=== PATIENT | female | born 1995 | race Caucasian/White ===

== ENCOUNTER 2020-04-11 19:39 | Emergency (ER) | payer OTHER, SELFPAY ==
--- NOTE | 2020-04-11 19:42 | ED.SKABFB ---
HPI - Skin/Abscess/Foreign Bdy General Chief complaint: Extremity Injury, Upper Stated complaint: right hand finger infection Time Seen by Provider: 04/11/20 19:42 Source: patient and RN notes reviewed History of Present Illness HPI narrative: Patient is a 25-year-old female who presents the urgent care with complaints of a infection to the right middle finger. Patient states that she noticed approximately 1 week ago and has now gotten more painful. Denies of any other acute complaints. Denies of fever, chills, nausea, vomiting. No acute distress noted. Patient aware of the plan of care. Some parts of this dictation were generated by voice recognition software and may contain typographical and/or grammatical inaccuracies. Related Data Allergies Allergy/AdvReac Type Severity Reaction Status Date / Time No Known Allergies Allergy Verified 04/11/20 19:51 Review of Systems Review of Systems: Narrative: CONSTITUTIONAL: Denies fever, chills, or sweats. EYES: Denies visual changes, redness, or discharge. ENT: Denies rhinorrhea, congestion, sore throat, or otalgia. CARDIOVASCULAR: Denies chest pain, palpitations, or edema. RESPIRATORY: Denies cough or dyspnea. GASTROINTESTINAL: Denies abdominal pain, nausea, vomiting, or diarrhea. GENITOURINARY: Denies dysuria or hematuria. SKIN: Denies rash or itching. MUSCULOSKELETAL: Reports of pain and swelling surrounding the nailbed of the right middle finger. Denies back pain, joint pain, or myalgia. NEUROLOGIC: Denies headache, numbness, or weakness. All other systems reviewed are negative, except as documented in HPI. PMFSH Comments At the time of my signature, I reviewed and agree with the nursing past medical, surgical, social, and family history. There is no relevant family history pertinent to the patient complaint. Exam Narrative: Exam Narrative: GENERAL: This is a well-nourished, well-developed patient, in no apparent distress. HEAD: normocephalic, atraumatic. EYES: PERRL. Sclera clear/white. Vision is grossly intact. EARS: External ears normal NOSE: External nose normal with no obvious nasal discharge, nares without redness, no rhinorrhea. THROAT: Mucous membranes moist NECK: Neck supple SKIN: Erythemic, tender paronychia to the right middle finger to the top of the nailbed and the radial aspect. Warm, intact with no suspicious lesions or rash, good texture and turgor. NEURO: awake, alert, and oriented to person, place and time. There were no obvious focal neurologic abnormalities. EXTREMITIES: No clubbing, cyanosis, or edema. Capillary refill less than 2 seconds to right upper extremity Course Vital Signs Vital signs: Vital Signs Temperature 98.7 F 04/11/20 19:45 Pulse Rate 72 04/11/20 19:45 Respiratory Rate 20 04/11/20 19:45 Blood Pressure 133/82 04/11/20 19:45 Pulse Oximetry 98 04/11/20 19:45 Temperature 98.7 F 04/11/20 19:45 Pulse Rate 72 04/11/20 19:45 Respiratory Rate 04/11/20 19:45 Blood Pressure 133/82 04/11/20 19:45 Pulse Oximetry 98 04/11/20 19:45 Reviewed Procedures Other Procedure Procedure 1: Other Procedure: Drained paronychia to right middle finger with 18-gauge needle. Cleansed with Technicare and normal saline as well as Betadine prior to procedure. Patient tolerated well. Procedure successful. Thick green to yellow drainage. MDM - Skin/Abscess/Foreign Bdy MDM Narrative Medical decision making narrative: Advised the patient to use plain Dial soap and water soaks twice a day. Apply prescription cream to the affected area twice a day. Keep it covered with a bandage if at risk of being soiled. Make sure to complete oral antibiotic regimen as prescribed. Make sure to eat and drink with the medication to avoid nausea and upset stomach. Increase water intake while on the medicine. Be aware of signs and symptoms of worsening infection such as increased swelling, redness, streaking up the hand or arm. If such
[2020-04-11 19:45] VITALS: BP 133/82; PULSE 72; RESP 20; TEMP 37.1; O2SAT 98
== END 2020-04-11 19:59 | disposition home or self-care (01) ==
PROVIDERS: Emergency Provider Nurse Practitioner Family; PCP Nurse Practitioner Family
DX: L03.011 Cellulitis of right finger (principal)
CPT/HCPCS: 99213; G0463

== ENCOUNTER 2020-08-18 18:45 | Emergency (ER) | payer OTHER, SELFPAY ==
[2020-08-18 19:00] VITALS: BP 129/88; PULSE 110; RESP 16; TEMP 36.6; O2SAT 100
--- NOTE | 2020-08-18 19:57 | ED.EYEPROB ---
HPI - Eye Problem General Chief complaint: Eye Problems Stated complaint: left eye and tooth pain Time Seen by Provider: 08/18/20 19:57 Source: patient and RN notes reviewed Mode of arrival: ambulatory Limitations: no limitations History of Present Illness HPI Narrative: 25-year-old female presents with concern for left eye pain. Reports on Saturday she was playing with her daughter when her daughter scratched her eye. She reports that since then she has been unable to close her eye due to pain. She reports redness, upper eyelid swelling. She reports blurry vision from watery drainage. She also, in a separate complaint, reports right upper dental pain. Reports she has a dentist appointment next week. She denies any new dental trauma, however reports she has many cavities, broken teeth. MD chief complaint: eye pain Related Data Allergies Allergy/AdvReac Type Severity Reaction Status Date / Time No Known Allergies Allergy Verified 04/11/20 19:51 Review of Systems Review of Systems: Narrative: CONSTITUTIONAL: Denies malaise, chills, sweats, or fever. EYES: Reports left blurry vision, left eye pain, redness, watery discharge. ENT: Denies rhinorrhea, congestion, sinus pain, otalgia or sore throat. Reports right upper dental pain CARDIOVASCULAR: Denies chest pain, palpitations, or edema. RESPIRATORY: Denies cough or dyspnea. NEUROLOGIC: Denies headache. All systems reviewed & are unremarkable except as noted in HPI and below PMFSH Social History Social History Gender identity (if verbalized by the patient): Female Comments At time of signature, agree with nursing past medical, surgical, social and family history. There is no relevant family history pertinent to the presenting complaint Exam Narrative: Exam Narrative: GENERAL: Well-appearing, well-nourished, and in no acute distress. HEAD: Normocephalic, atraumatic. EYES: PERRLA EOMI. LEFT eye sclera injected, conjunctive a clear, large corneal abrasion/ulceration noted upon Hopper lamp exam, see note ENT: Nares clear, mucous membranes moist. Many broken teeth, caries NECK: Supple. CHEST: No respiratory distress. Speaks in full sentences. HEART: Regular rate and rhythm. SKIN: Warm, dry, no rash. NEURO: Alert and oriented x3. PSYCH: Normal mood and affect Course Course Emergency Course: Patient is aware of diagnosis, understands and agrees to treatment plan. Anticipatory guidance given. Patient agrees to follow-up as directed and is aware of reasons to seek care at the emergency department. Portions of this record may have been created with voice recognition software Vital Signs Vital signs: Vital Signs Temperature 97.8 F 08/18/20 19:00 Pulse Rate 110 H 08/18/20 19:00 Respiratory Rate 16 08/18/20 19:00 Blood Pressure 129/88 08/18/20 19:00 Pulse Oximetry 100 08/18/20 19:00 Temperature 97.8 F 08/18/20 19:00 Pulse Rate 110 H 08/18/20 19:00 Respiratory Rate 16 08/18/20 19:00 Blood Pressure 129/88 08/18/20 19:00 Pulse Oximetry 100 08/18/20 19:00 Reviewed. Patient has been instructed to follow up with her primary care provider within the next week regarding her elevated blood pressure today. Procedures Other Procedure Procedure 1: Other Procedure: Tetracaine 1 gtt instilled in left eye, fluorescein stain applied. Large corneal abrasion/ulceration noted upon hopper lamp exam at approximately5 o'clock in relation to the pupil. Eye washed with NS 100 ml. No foreign bodies or Chelsi sign noted. MDM - Eye Problem MDM Narrative Medical decision making narrative: Consideration of the following conditions may be warranted for the presenting problem, they are not final diagnoses: Bacterial conjunctivitis, allergic conjunctivitis, viral conjunctivitis, foreign body, blepharitis, chalazion, hordeolum, corneal abrasion, preseptal cellulitis, orbital cellulitis. No evidence of proptosis, ophthalmoplegia, vision loss, pain with eye mo
== END 2020-08-18 20:17 | disposition home or self-care (01) ==
PROVIDERS: Emergency Provider Nurse Practitioner; PCP Nurse Practitioner Family
DX: S05.02XA Injury of conjunctiva and corneal abrasion without foreign body, left eye, initial encounter (principal); W50.0XXA Accidental hit or strike by another person, initial encounter; K08.89 Other specified disorders of teeth and supporting structures
CPT/HCPCS: 99213; A9270; G0463

== ENCOUNTER 2022-03-17 10:38 | Emergency (ER) | payer OTHER, SELFPAY ==
[2022-03-17 10:42] VITALS: BP 110/54; PULSE 111; RESP 14; TEMP 37.3; O2SAT 100
--- NOTE | 2022-03-17 10:46 | ED.URI ---
HPI - URI/Sore Throat General Chief Complaint: Upper Respiratory Infection Stated Complaint: aches shaky Time Seen by Provider: 03/17/22 10:47 Source: patient and RN notes reviewed History of Present Illness HPI Narrative: patient is a 27-year-old female who presents to urgent care with complaints of body aches, chills, ear pain and headache. Patient states that it started 2 days ago and she was unable to go to work. Patient has not taken anything [id number] for her symptoms. Denies any known ill exposures. No other acute complaints. No acute distress noted. Patient aware of the plan of care. Some parts of this dictation were generated by voice recognition software and may contain typographical and/or grammatical inaccuracies. Related Data Home Medications Medication Instructions Recorded Confirmed No Home Medications 03/17/22 03/17/22 Allergies Allergy/AdvReac Type Severity Reaction Status Date / Time No Known Allergies Allergy Verified 03/17/22 10:52 Review of Systems Review of Systems: CONSTITUTIONAL: Reports of chills, fatigue EYES: Denies visual changes, redness, or discharge. ENT: Denies rhinorrhea, congestion, sore throat. Reports of otalgia CARDIOVASCULAR: Denies chest pain, palpitations, or edema. RESPIRATORY: Denies cough or dyspnea. GASTROINTESTINAL: Denies abdominal pain, nausea, vomiting, or diarrhea. GENITOURINARY: Denies dysuria or hematuria. SKIN: Denies rash or itching. MUSCULOSKELETAL: Denies back pain, joint pain. Reports body aches NEUROLOGIC: Denies headache, numbness, or weakness. All other systems reviewed are negative, except as documented in HPI. PMFSH Social History Social History Gender identity (if verbalized by the patient): Female Comments At the time of my signature, I reviewed and agree with the nursing past medical, surgical, social, and family history. There is no relevant family history pertinent to the patient complaint. Exam Narrative: GENERAL: This is a well-nourished, well-developed patient. Appears slightly fatigued HEAD: normocephalic, atraumatic. EYES: PERRL. Sclera clear/white. Vision is grossly intact. EARS: External ears normal, auditory canals clear and without drainage, TMs normal without perforation. Hearing grossly intact. NOSE: External nose normal with no obvious nasal discharge, nares without redness, Clear to yellow rhinorrhea. THROAT: Mucous membranes moist, posterior pharynx clear. Moderate postnasal drainage. NECK: Neck supple, non-tender without lymphadenopathy CARDIOVASCULAR: Regular rate and rhythm without murmurs, gallops, or rubs. RESPIRATORY: cough noted on exam.Clear to auscultation. Breath sounds equal bilaterally. No wheezes, rales, or rhonchi. GASTROINTESTINAL: Abdomen soft, non-tender, nondistended. Bowel sounds are active. No hepato-splenomegaly, or palpable masses. No guarding. SKIN: warm, intact with no suspicious lesions or rash, good texture and turgor. NEURO: awake, alert, and oriented to person, place and time. There were no obvious focal neurologic abnormalities. EXTREMITIES: No clubbing, cyanosis, or edema. Course Course Level of Care: Express Care Visit Vital Signs Vital signs: Vital Signs Temperature 99.1 F 03/17/22 10:42 Pulse Rate 111 H 03/17/22 10:42 Respiratory Rate 14 03/17/22 10:42 Blood Pressure 110/54 L 03/17/22 10:42 Pulse Oximetry 100 03/17/22 10:42 Oxygen Delivery Room Air 03/17/22 10:42 Temperature 99.1 F 03/17/22 10:42 Pulse Rate 111 H 03/17/22 10:42 Respiratory Rate 14 03/17/22 10:42 Blood Pressure 110/54 L 03/17/22 10:42 Pulse Oximetry 100 03/17/22 10:42 Oxygen Delivery Room Air 03/17/22 10:42 reviewed MDM - URI/Sore Throat MDM Narrative Medical decision making narrative: reviewed lab results with the patient. She is aware that her flu swab was negative. Advised patient to increase her fluid intake. Use Tylenol/ ibuprofen as needed
== END 2022-03-17 11:10 | disposition home or self-care (01) ==
PROVIDERS: Emergency Provider Nurse Practitioner Family; PCP Nurse Practitioner Family
DX: B34.9 Viral infection, unspecified (principal)
CPT/HCPCS: 87804; 99213; G0463

== ENCOUNTER 2022-07-01 18:41 | Emergency (ER) | payer OTHER, SELFPAY ==
[2022-07-01 19:00] VITALS: BP 129/92; PULSE 122; RESP 16; TEMP 37.4; O2SAT 100
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
== END 2022-07-01 19:21 | disposition left against medical advice (07) ==
PROVIDERS: Emergency Provider Registered Nurse; PCP Family Medicine
DX: S05.12XA Contusion of eyeball and orbital tissues, left eye, initial encounter (principal); S80.12XA Contusion of left lower leg, initial encounter; S80.11XA Contusion of right lower leg, initial encounter; S40.021A Contusion of right upper arm, initial encounter; V48.5XXA Car driver injured in noncollision transport accident in traffic accident, initial encounter
CPT/HCPCS: 99212; G0463

== ENCOUNTER 2022-10-24 19:47 | Emergency (ER) | payer OTHER, SELFPAY ==
[2022-10-24 19:50] VITALS: BP 128/82; PULSE 89; RESP 16; TEMP 36.2; O2SAT 99
--- NOTE | 2022-10-24 19:52 | ED.DENTAL ---
HPI - Dental/Oral General Chief complaint: Dental/Oral Stated complaint: tooth pain Time Seen by Provider: 10/24/22 19:52 Source: patient and RN notes reviewed History of Present Illness HPI Narrative: Patient is a 27-year-old female presents to urgent care with complaints of right upper dental pain but also states that she is having pain to the left upper. Patient states that it started yesterday and she has been taking Tylenol without any relief. Patient appears to be possibly under the influence. No other acute complaints. Patient is tearful. Aware of the plan of care. Some parts of this dictation were generated by voice recognition software and may contain typographical and/or grammatical inaccuracies. Related Data Allergies Allergy/AdvReac Type Severity Reaction Status Date / Time No Known Allergies Allergy Verified 10/24/22 19:54 Review of Systems Review of Systems: CONSTITUTIONAL: Denies fever, chills, or sweats. EYES: Denies visual changes, redness, or discharge. ENT: Denies rhinorrhea, congestion, sore throat, or otalgia. Reports right upper dental pain CARDIOVASCULAR: Denies chest pain, palpitations, or edema. RESPIRATORY: Denies cough or dyspnea. GASTROINTESTINAL: Denies abdominal pain, nausea, vomiting, or diarrhea. GENITOURINARY: Denies dysuria or hematuria. SKIN: Denies rash or itching. MUSCULOSKELETAL: Denies back pain, joint pain, or myalgia. NEUROLOGIC: Denies headache, numbness, or weakness. All other systems reviewed are negative, except as documented in HPI. [facility] Past Medical History Medical History (Updated 10/24/22 @ 19:55 by JERMAINE Baker) Borderline personality disorder Post depression Surgical History Surgical History (Updated 07/03/22 @ 23:24 by Rupal Parker NP) Previous section Social History Social History (Updated 07/03/22 @ 23:26 by Rupal Parker NP) Alcohol intake: current Substance use type: former substance user Living arrangements: with family Gender identity (if verbalized by the patient): Female Comments At the time of my signature, I reviewed and agree with the nursing past medical, surgical, social, and family history. There is no relevant family history pertinent to the patient complaint. Exam Narrative: GENERAL: This is a well-nourished, well-developed patient, in no apparent distress. HEAD: normocephalic, atraumatic. EYES: PERRL. Sclera clear/white. Vision is grossly intact. EARS: External ears normal NOSE: External nose normal with no obvious nasal discharge, nares without redness, no rhinorrhea. THROAT: Mucous membranes moist DENTAL: Gingivitis throughout with multiple carious lesions, trench mouth. NECK: Neck supple, non-tender without lymphadenopathy, masses or thyromegaly. SKIN: warm, intact with no suspicious lesions or rash, good texture and turgor. NEURO: awake, alert, and oriented to person, place and time. There were no obvious focal neurologic abnormalities. EXTREMITIES: No clubbing, cyanosis, or edema. Course Course Level of Care: Express Care Visit Vital Signs Vital signs: Vital Signs Temperature 97.2 F L 10/24/22 19:50 Pulse Rate 89 10/24/22 19:50 Respiratory Rate 16 10/24/22 19:50 Blood Pressure 128/82 10/24/22 19:50 Pulse Oximetry 99 10/24/22 19:50 Oxygen Delivery Room Air 10/24/22 19:50 Temperature 97.2 F L 10/24/22 19:50 Pulse Rate 89 10/24/22 19:50 Respiratory Rate 16 10/24/22 19:50 Blood Pressure 128/82 10/24/22 19:50 Pulse Oximetry 99 10/24/22 19:50 Oxygen Delivery Room Air 10/24/22 19:50 Reviewed MDM - Dental/Oral MDM Narrative Medical decision making narrative: Advised patient to complete the oral antibiotic regimen as prescribed. Use the mouthwash as directed. Use ibuprofen/Tylenol as needed for pain or discomfort. If she develops any increase in pain associated with fever, nausea or vomiting-go to the emergency room. It
== END 2022-10-24 20:00 | disposition home or self-care (01) ==
PROVIDERS: Emergency Provider Nurse Practitioner Family
DX: K02.9 Dental caries, unspecified (principal); K05.10 Chronic gingivitis, plaque induced; K08.89 Other specified disorders of teeth and supporting structures
CPT/HCPCS: 99213; G0463

== ENCOUNTER 2023-01-18 18:00 | Emergency (ER) | payer OTHER, SELFPAY ==
[2023-01-18 18:04] VITALS: BP 122/88; PULSE 101; RESP 18; TEMP 36.4; O2SAT 98
--- NOTE | 2023-01-18 18:33 | ED.GENADULT ---
HPI - General Adult General Chief complaint: Upper Respiratory Infection Stated complaint: Cough, Headache, Dizzy, Vomiting Source: patient and RN notes reviewed History of Present Illness HPI narrative: 27 yo F presents to urgent care with complaints of a right sided MARIA behind her right eye x 3 days. Pt states the headaches are intermittent and will last maybe 10-15 min and will go away on their own. Pt states they will return frequently throughout the day. Pt reports associated nausea and dizziness when the pain does occur. Pt denies any vomiting but reports some diarrhea. Pt denies any blurry vision, numbness, tingling, chest pain, or SOB. Denies any fevers, congestion, sore throat. Pt has taken ibuprofen at home without relief. Pt admits to being under a lot of stress lately and does admit to not drinking water and only soda. Related Data Allergies Allergy/AdvReac Type Severity Reaction Status Date / Time No Known Allergies Allergy Verified 01/18/23 18:04 Review of Systems Review of Systems: Pertinent positives and pertinent negatives per HPI. [facility] Past Medical History Medical History (Updated 01/18/23 @ 18:40 by Sasha Cordova APRN) Borderline personality disorder Post depression Surgical History Surgical History (Updated 07/03/22 @ 23:24 by Rupal Parker NP) Previous section Social History Social History (Updated 07/03/22 @ 23:26 by Rupal Parker NP) Alcohol intake: current Substance use type: former substance user Living arrangements: with family Gender identity (if verbalized by the patient): Female Comments At the time of my signature, I reviewed and agree with the nursing past medical, surgical, social, and family history. There is no relevant family history pertinent to the patient complaint. Exam Narrative: GENERAL: This is a well-nourished, well-developed patient, in no apparent distress. HEAD: normocephalic, atraumatic. EYES: Sclera clear/white. Vision is grossly intact. PERRLA. EARS: External ears normal, auditory canals clear and without drainage, TMs normal without perforation. Hearing grossly intact. NOSE: External nose normal with no obvious nasal discharge, nares without redness, no rhinorrhea. THROAT: Mucous membranes moist, posterior pharynx clear. NECK: Neck supple, non-tender without lymphadenopathy, masses or thyromegaly. CARDIOVASCULAR: Regular rate and rhythm without murmurs, gallops, or rubs. RESPIRATORY: No respiratory distress SKIN: warm, intact with no suspicious lesions or rash, good texture and turgor. NEURO: awake, alert, and oriented to person, place and time. There were no obvious focal neurologic abnormalities. EXTREMITIES: No clubbing, cyanosis, or edema. No joint tenderness, effusion, or edema noted. BACK: Nontender without deformity or crepitus. No flank tenderness. Course Course Level of Care: Express Care Visit Vital Signs Vital signs: Vital Signs Temperature 97.6 F 01/18/23 18:04 Pulse Rate 101 H 01/18/23 18:04 Respiratory Rate 18 01/18/23 18:04 Blood Pressure 122/88 01/18/23 18:04 Pulse Oximetry 98 01/18/23 18:04 Oxygen Delivery Room Air 01/18/23 18:04 Temperature 97.6 F 01/18/23 18:04 Pulse Rate 101 H 01/18/23 18:04 Respiratory Rate 18 01/18/23 18:04 Blood Pressure 122/88 01/18/23 18:04 Pulse Oximetry 98 01/18/23 18:04 Oxygen Delivery Room Air 01/18/23 18:04 reviewed Medical Decision Making MDM Narrative Medical decision making narrative: May take 600 mg of ibuprofen every 6 hours with food as well as 650 mg of Tylenol every 6 hours for pain if needed. Get plenty of fluids (water, pedialyte, Gatorade Zero, coconut water), not soda. Get plenty of rest. If symptoms worsen, go to the ER. Discussed option of going to the ER tonight and pt declined. Pt states she knows she doesn't get enough fluids b/c she only drinks soda. Pt also admits to being under a lot
== END 2023-01-18 18:45 | disposition home or self-care (01) ==
PROVIDERS: Emergency Provider Nurse Practitioner Family; PCP Nurse Practitioner Family
DX: G43.919 Migraine, unspecified, intractable, without status migrainosus (principal)
CPT/HCPCS: 99213; G0463

== ENCOUNTER 2023-01-29 15:00 | Emergency (ER) | payer OTHER, SELFPAY ==
[2023-01-29 15:02] VITALS: BP 126/93; PULSE 138; RESP 20; TEMP 36.8; O2SAT 100
--- NOTE | 2023-01-29 15:02 | ED.NAVMDI ---
HPI - Nausea/Vomiting/Diarrhea General Chief complaint: Nausea/Vomiting/Diarrhea Stated complaint: nausea/diarrhea Source: patient and RN notes reviewed Mode of arrival: ambulatory Limitations: no limitations History of Present Illness HPI Narrative: Patient is a 27-year-old female who presents to the [facility] with daughter with complaints nausea, vomiting, and diarrhea over the last 3 days. She also reports sweats and chills but is unsure of fever. She denies abdominal pain. Denies blood in vomit or stool. States that her symptoms have been ongoing but have improved slightly. She denies sore throat, cough, congestion. Denies chest pain or shortness of breath. Related Data Allergies Allergy/AdvReac Type Severity Reaction Status Date / Time No Known Allergies Allergy Verified 01/18/23 18:04 Review of Systems Review of Systems: CONSTITUTIONAL: Denies fever, but reports chills and sweats. EYES: Denies visual changes, redness, or discharge. ENT: Denies otalgia and sore throat CARDIOVASCULAR: Denies chest pain, palpitations, or edema. RESPIRATORY: Denies cough or dyspnea. GASTROINTESTINAL: Denies abdominal pain, but reports nausea, vomiting, and diarrhea. GENITOURINARY: Denies dysuria or hematuria. SKIN: Denies rash or itching. MUSCULOSKELETAL: Denies back pain, joint pain, or myalgia. NEUROLOGIC: Denies headache, numbness, or weakness. Pertinent positives per HPI. PMFSH Past Medical History Medical History Borderline personality disorder Post depression Surgical History Surgical History Previous section Social History Social History Alcohol intake: current Substance use type: former substance user Living arrangements: with family Gender identity (if verbalized by the patient): Female Comments At the time of my signature, I reviewed and agree with the nursing past medical, surgical, social, and family history. There is no relevant family history pertinent to the patient complaint. Exam Narrative: GENERAL: This is a well-nourished, well-developed patient, in no apparent distress. HEAD: normocephalic, atraumatic. EYES: PERRL. Sclera clear/white. Vision is grossly intact. EARS: External ears normal, auditory canals clear and without drainage, TMs normal without perforation. Hearing grossly intact. NOSE: External nose normal with no obvious nasal discharge, nares without redness, no rhinorrhea. THROAT: Mucous membranes moist, posterior pharynx clear. NECK: Neck supple, non-tender without lymphadenopathy, masses or thyromegaly. CARDIOVASCULAR: Regular rate and rhythm without murmurs, gallops, or rubs. RESPIRATORY: Clear to auscultation. Breath sounds equal bilaterally. No wheezes, rales, or rhonchi. GASTROINTESTINAL: Abdomen soft, non-tender, nondistended. Bowel sounds are active. No hepato-splenomegaly, or palpable masses. No guarding. SKIN: warm, intact with no suspicious lesions or rash, good texture and turgor. NEURO: awake, alert, and oriented to person, place and time. There were no obvious focal neurologic abnormalities. EXTREMITIES: No clubbing, cyanosis, or edema. No joint tenderness, effusion, or edema noted. BACK: Nontender without deformity or crepitance. No flank tenderness. Course Course Level of Care: Express Care Visit Vital Signs Vital signs: Vital Signs Temperature 98.3 F 01/29/23 15:02 Pulse Rate 138 H 01/29/23 15:02 Respiratory Rate 20 01/29/23 15:02 Blood Pressure 126/93 H 01/29/23 15:02 Pulse Oximetry 100 01/29/23 15:02 Oxygen Delivery Room Air 01/29/23 15:02 Temperature 98.3 F 01/29/23 15:02 Pulse Rate 64 01/29/23 15:23 Respiratory Rate 20 01/29/23 15:02 Blood Pressure 126/93 H 01/29/23 15:02 Pulse Oximetry 100 01/29/23 15:02 Oxygen Delivery Room
[2023-01-29 15:23] VITALS: PULSE 64
== END 2023-01-29 15:40 | disposition home or self-care (01) ==
PROVIDERS: Emergency Provider Nurse Practitioner; PCP Nurse Practitioner Family
DX: A08.4 Viral intestinal infection, unspecified (principal)
CPT/HCPCS: 99213; G0463